=== PATIENT | female | born 1980 | race American Indian/Alaskan Native ===

== ENCOUNTER 2020-01-20 16:49 | Emergency (ER) | payer SELFPAY | END 2020-01-20 17:42 | disposition left against medical advice (07) | LOC: ED 16:49 | DX: M54.9 Dorsalgia, unspecified (principal); Z53.21 Procedure and treatment not carried out due to patient leaving prior to being seen by health care provider ==

== ENCOUNTER 2020-02-02 20:48 | Emergency (ER) | payer SELFPAY ==
[2020-02-02 21:39] LABS: Hematocrit 39.3 % (30.3-42.9); Hemoglobin 13.1 gm/dl (10.1-14.3); Mean Corpuscular HGB Conc 33 % (30-34); Mean Corpuscular Volume 91 fl (79-97); Platelet Count 333 K/mm3 (140-440); Red Blood Count 4.32 M/mm3 (3.65-5.03); Red Cell Distribution Width 12.9 % (13.2-15.2)
[2020-02-02] MEDS ORDERED: methylPREDNISolone Sod Succinate 125 MG/2 ML INJ IV ONE (21:46)
[2020-02-02] MEDS ORDERED: SODIUM CHLORIDE 0.9% 1000 ML 1,000 ML IV ONE (21:46)
--- NOTE | 2020-02-02 21:47 | Emergency Department Report ---
ED ENT HPI - General Chief complaint: Sore Throat Stated complaint: CAN'T SWALLOW FEVER Time Seen by Provider: 02/02/20 21:40 Source: patient Mode of arrival: Wheelchair Limitations: No Limitations - History of Present Illness Initial comments: Patient is a 39-year-old female that presents emergency room with complaints of throat pain and difficulty swallowing. Patient states that the symptoms started this morning. Patient states his symptoms are worsening. Patient states that she has had a sore throat, difficulty swallowing, body aches, fever and weakness. Patient states she is unable to swallow her spit. Patient states is unable to eat. Patient denies cough. Patient denies chest pain. Patient denies shortness of breath. Patient denies recent travel. Patient denies recent international travel. Patient denies exposure to the novel coronavirus. Patient denies sick contacts. Patient denies loss of smell.. Patient denies cough. Patient denies diarrhea. Patient denies coming in contact with anybody with symptoms of the novel c oronavirus. MD complaint: tooth pain, difficulty swallowing -: Sudden Location: throat Severity: severe Severity scale (0 -10): 10 Quality: stabbing Consistency: constant Improves with: rest Worsens with: swallowing, movement Associated Symptoms: fever, pain with swallowing, sore throat. denies: cough, gum swelling, toothache, tinnitus, hearing loss, discharge from ear, rhinorrhea - Related Data Home Medications Medication Instructions Recorded Confirmed Last Taken Omeprazole [Prilosec] 20 mg PO DAILY 02/08/13 02/08/13 02/13/13 raNITIdine HCL [Ranitidine HCl] 150 mg PO Q12HR PRN 02/15/13 02/15/13 02/14/13 Previous Rx's Medication Instructions Recorded Last Taken Type HYDROcodone/APAP 10-325 [Omro 1 each PO Q6HR PRN #16 tablet 07/24/13 Unknown Rx 10-325 mg TAB] Jt/Polymyx B/Dexameth Opth(Nf 2 drops OP QID #5 ml 07/24/13 Unknown Rx [Maxitrol] Sulfamethoxazole/Trimethoprim 1 each PO Q12H #14 tablet 07/24/13 Unknown Rx [Bactrim Ds] Diclofenac Dr [Voltaremo Dr] 75 mg PO Q12H #30 tablet 01/24/14 Unknown Rx Amoxicillin/K Clav Tab [Augmentin 1 tab PO Q12HR 10 Days #20 tab 02/03/20 Unknown Rx 875 mg] methylPREDNISolone [Medrol 4MG 4 mg PO DAILY 6 Days #1 tab.ds.pk 02/03/20 Unknown Rx DOSEPAK (21 tabs)] traMADoL [Ultram 50 MG tab] 50 mg PO Q6HR PRN #15 tablet 02/03/20 Unknown Rx Allergies Allergy/AdvReac Type Severity Reaction Status Date / Time No Known Allergies Allergy Unverified 02/08/13 10:39 ED Dental HPI - General Chief complaint: Sore Throat Stated complaint: CAN'T SWALLOW FEVER Time Seen by Provider: 02/02/20 21:40 Source: patient Mode of arrival: Wheelchair Limitations: No Limitations - Related Data Home Medications Medication Instructions Recorded Confirmed Last Taken Omeprazole [Prilosec] 20 mg PO DAILY 02/08/13 02/08/13 02/13/13 raNITIdine HCL [Ranitidine HCl] 150 mg PO Q12HR PRN 02/15/13 02/15/13 02/14/13 Previous Rx's Medication Instructions Recorded Last Taken Type HYDROcodone/APAP 10-325 [Omro 1 each PO Q6HR PRN #16 tablet 07/24/13 Unknown Rx 10-325 mg TAB] Jt/Polymyx B/Dexameth Opth(Nf 2 drops OP QID #5 ml 07/24/13 Unknown Rx [Maxitrol] Sulfamethoxazole/Trimethoprim 1 each PO Q12H #14 tablet 07/24/13 Unknown Rx [Bactrim Ds] Diclofenac Dr [Voltaren Dr] 75 mg PO Q12H #30 tablet 01/24/14 Unknown Rx Amoxicillin/K Clav Tab [Augmentin 1 tab PO Q12HR 10 Days #20 tab 02/03/20 Unknown Rx 875 mg] methylPREDNISolone [Medrol 4MG 4 mg PO DAILY 6 Days #1 tab.ds.pk 02/03/20 Unknown Rx DOSEPAK (21 tabs)] traMADoL [Ultram 50 MG tab] 50 mg PO Q6HR PRN #15 tablet 02/03/20 Unknown Rx Allergies Allergy/AdvReac Type Severity Reaction Status Date / Time No Known Allergies Allergy Unverified 02/08/13 10:39 ED Review of Systems ROS: Stated complaint: CAN'T SWALLOW FEVER Other details as noted in HPI Constitutional: see HPI, chills, fever, weakness Eyes: denies: eye pain, eye discharge, vision change ENT: as per HPI, throat pain. denies: ear pain Respiratory: see HPI. denies: cough, shortness of breath, wheezing Cardiovascular: denies: chest pain, palpitations Endocrine: no symptoms reported Gastrointestinal: denies: abdominal pain, nausea, diarrhea Genitourinary: denies: urgency, dysuria, discharge Musculoskeletal: denies: back pain, joint swelling, arthralgia Skin: denies: rash, lesions Neurological: denies: headache, paresthesias Psychiatric: denies: anxiety, depression Hematological/Lymphatic: denies: easy bleeding, easy bruising ED Past Medical Hx - Past Medical History Previous Medical History?: Yes Hx Hypertension: No Hx GERD: Yes Hx Seizures: No - Surgical History Past Surgical History?: Yes Additional Surgical History: 2013 BREAST - Family History Family history: no significant - Social History Smoking Status: Never Smoker Substance Use Type: None - Medications Home Medications: Home Medications Medication Instructions Recorded Confirmed Last Taken Type Omeprazole [Prilosec] 20 mg PO DAILY 02/08/13 02/08/13 02/13/13 History raNITIdine HCL [Ranitidine HCl] 150 mg PO Q12HR PRN 02/15/13 02/15/13 02/14/13 History HYDROcodone/APAP 10-325 [Omro 1 each PO Q6HR PRN #16 tablet 07/24/13 Unknown Rx 10-325 mg TAB] Jt/Polymyx B/Dexameth Opth(Nf 2 drops OP QID #5 ml 07/24/13 Unknown Rx [Maxitrol] Sulfamethoxazole/Trimethoprim 1 each PO Q12H #14 tablet 07/24/13 Unknown Rx [Bactrim Ds] Diclofenac Dr [Voltaren Dr] 75 mg PO Q12H #30 tablet 01/24/14 Unknown Rx Amoxicillin/K Clav Tab [Augmentin 1 tab PO Q12HR 10 Days #20 tab 02/03/20 Unknown Rx 875 mg] methylPREDNISolone [Medrol 4MG 4 mg PO DAILY 6 Days #1 tab.ds.pk 02/03/20 Unknown Rx DOSEPAK (21 tabs)] traMADoL [Ultram 50 MG tab] 50 mg PO Q6HR PRN #15 tablet 02/03/20 Unknown Rx ED Physical Exam - General Limitations: No Limitations General appearance: alert, in no apparent distress - Head Head exam: Present: atraumatic, normocephalic - Eye Eye exam: Present: normal appearance - ENT ENT exam: Present: mucous membranes moist, other (Right oropharynx noted.) - Neck Neck exam: Present: normal inspection - Respiratory Respiratory exam: Present: normal lung sounds bilaterally. Absent: respiratory distress - Cardiovascular Cardiovascular Exam: Present: regular rate, normal rhythm. Absent: systolic murmur, diastolic murmur, rubs, gallop - GI/Abdominal GI/Abdominal exam: Present: soft, normal bowel sounds - Extremities Exam Extremities exam: Present: normal inspection - Back Exam Back exam: Present: normal inspection - Neurological Exam Neurological exam: Present: alert, oriented X3 - Psychiatric Psychiatric exam: Present: normal affect, normal mood - Skin Skin exam: Present: warm, dry, intact, normal color. Absent: rash ED Course Vital Signs 02/02/20 02/02/20 02/02/20 21:15 21:18 21:49 Temperature 99.7 F H 99.4 F 99.9 F H Pulse Rate 97 H 86 Respiratory 16 16 Rate Blood Pressure 124/79 Blood Pressure 138/80 [Right] O2 Sat by Pulse 100 99 Oximetry - Reevaluation(s) Reevaluation #1: Patient states her pain is better. 02/02/20 23:20 Reevaluation #2: Patient states he is feeling much better. Patient states she is able to swallow but it still hurts. Patient states overall her pain is much better. Patient will be given Rocephin prior to discharge. I discussed all results and clinical findings with patient. I discussed plan of care with patient. Patient agrees with plan of care. Patient is stable for discharge. Patient will be discharged home. Patient given discharge instructions. Patient voiced understanding of discharge instructions. 02/03/20 03:20 Reevaluation #3: Patient states she is feeling much better. 02/03/20 03:55 ED Medical Decision Making - Lab Data Result diagrams: 02/02/20 21:25 02/02/20 21:25 - Radiology Data Radiology results: report reviewed CHEST 1 VIEW INDICATION: fever. COMPARISON: None FINDINGS: SUPPORT DEVICES: None. HEART: Within normal limits. LUNGS/PLEURA: No acute air space or interstitial disease. ADDITIONAL FINDINGS: None. IMPRESSION: 1. No acute findings. CT neck w con INDICATION / CLINICAL INFORMATION: 39 years Female; DIFFICULTY SWALLOWING WITH MUFFERING OF VOICE. TECHNIQUE: Contiguous thin cut axial images obtained through the neck following IV contras t. Sagittal and coronal reconstructions performed by the technologist. All CT scans at this location are performed using CT dose reduction for ALARA by means of automated exposure control. COMPARISON: None available. FINDINGS: MUCOSAL SPACE: There is heterogeneous prominence of the palatine soft tissues bilaterally with striated enhancement which may be seen with tonsillitis. There are a few scattered small areas of relatively decreased attenuation though there is no clear evidence of well- defined abscess on the current exam. There is mild narrowing of the transverse airway at this level. The epiglottis is appropriate in size. LYMPH NODES: There is associated reactive lymphadenopathy, most notably within the left jugulodigastric region with a node measuring 1.4 cm in short axis diameter. There are mild adjacent inflammatory changes within the jugulodigastric regions. SALIVARY GLANDS: The visualized parotid glands demonstrate symmetric attenuation without calcification. There is absence of the submandibular glands and correlation would be needed regarding any previous surgery at. THYROID GLAND: The thyroid gland demonstrate appropriate size and contour. PARANASAL SINUSES: Visualized paranasal sinuses and mastoid air cells are essentially clear. SPINE: There is mild reversal of the cervical lordosis with mild degenerative disc changes. VASCULAR STRUCTURES: Vascular structures are grossly normal in appearance. Surrounding soft tissues are otherwise grossly normal. IMPRESSION: 1. There is heterogeneous prominence of the palatine soft tissues with striated enhancement in a pattern which may be seen with tonsillitis as detailed above at. There is associated reactive cervical lymphadenopathy. - Medical Decision Making Patient is a 39-year-old female that presents emergency room with complaints of difficulty swallowing, severe throat pain, fever. Patient found to have enlarged tonsils on exam. Patient also found to be febrile and having difficulty swallowing. Patient was given Solu-Medrol and viscous lidocaine. Patient symptoms improved. Patient's pain improved. Patient states she is feeling better prior to discharge. Patient had labs done which were essentially unremarkable except for elevated WBC. Patient had a chest x-ray for the fever and it was negative for acute findings. Patient had a CT scan of the soft tissue of the neck due to the severity of her symptoms and her inability to swallow. Patient had a CT also to rule out a peritonsillar abscess. Patient's CT scan was positive for tonsillitis. Patient given antibiotics and steroids as a prescription. Patient given discharge directions. Patient stable for discharge. - Differential Diagnosis Fever, tonsillitis, peritonsillar abscess, throat pain Critical care attestation.: If time is entered above; I have spent that time in minutes in the direct care of this critically ill patient, excluding procedure time. ED Disposition Clinical Impression: Throat pain in adult, Sore throat, Acute bacterial tonsillitis Difficulty swallowing Qualifiers: Dysphagia type: unspecified Qualified Code(s): R13.10 - Dysphagia, unspecified Fever Qualifiers: Fever type: unspecified Qualified Code(s): R50.9 - Fever, unspecified Disposition: DC-01 TO HOME OR SELFCARE Is pt being admited?: No Does the pt Need Aspirin: No Condition: Stable Instructions: Tonsillitis, [id number], Pharyngitis, [id number], Sore Throat, [id number] Additional Instructions: Patient to follow-up with primary care in 2 to 3 days. Patient to follow-up with ENT in 2 to 3 days. Patient to rest. Patient to increase water. Patient to avoid strenuous exercise or heavy lifting until cleared by ENT and primary care. Patient to take Tylenol or ibuprofen as needed for pain. Patient to take meds as directed. Patient to return to the ER if condition worsens, changes or new symptoms arise. Prescriptions: Amoxicillin/K Clav Tab [Augmentin 875 mg] 1 tab PO Q12HR 10 Days #20 tab methylPREDNISolone [Medrol 4MG DOSEPAK (21 tabs)] 4 mg PO DAILY 6 Days #1 tab.ds.pk traMADoL [Ultram 50 MG tab] 50 mg PO Q6HR PRN #15 tablet PRN Reason: Pain Referrals: PRIMARY CARE, [Primary Care Provider] - 2-3 Days Time of Disposition: 03:25
[2020-02-02] MEDS ORDERED: LIDOCAINE VISCOUS 2% 15 ML ORAL LIQD ONE (21:50)
[2020-02-02 21:51] VITALS: BP 138/80
[2020-02-02] MEDS ORDERED: LIDOCAINE VISCOUS 2% 15 ML ORAL LIQD PO ONE (21:53)
[2020-02-02 21:58] LABS: Alanine Aminotransferase 9 units/L (7-56); Albumin 3.7 g/dL (3.9-5); BUN/Creatinine Ratio 8; Blood Urea Nitrogen 6 mg/dL (7-17); Calcium 9.4 mg/dL (8.4-10.2); Hemolysis Index 6
--- NOTE | 2020-02-02 23:05 | XRay Report ---
CHEST 1 VIEW INDICATION: fever. COMPARISON: None FINDINGS: SUPPORT DEVICES: None. HEART: Within normal limits. LUNGS/PLEURA: No acute air space or interstitial disease. ADDITIONAL FINDINGS: None. IMPRESSION: 1. No acute findings. Signer Name: Kenji Monge MD Signed: 02/02/2020 11:00 PM Workstation Name: [id number]
--- NOTE | 2020-02-02 23:57 | Cat Scan Report ---
CT neck w con INDICATION / CLINICAL INFORMATION: 39 years Female; DIFFICULTY SWALLOWING WITH MUFFERING OF VOICE. TECHNIQUE: Contiguous thin cut axial images obtained through the neck following IV contrast. Sagittal and bernardo l reconstructions performed by the technologist. All CT scans at this location are performed using CT dose reduction for ALARA by means of automated exposure control. COMPARISON: None available. FINDINGS: MUCOSAL SPACE: There is heterogeneous prominence of the palatine soft tissues bilaterally with striat ed enhancement which may be seen with tonsillitis. There are a few scattered small areas of relativel y decreased attenuation though there is no clear evidence of well-defined abscess on the current exam . There is mild narrowing of the transverse airway at this level. The epiglottis is appropriate in si ze. LYMPH NODES: There is associated reactive lymphadenopathy, most notably within the left jugulodigastr ic region with a node measuring 1.4 cm in short axis diameter. There are mild adjacent inflammatory c hanges within the jugulodigastric regions. SALIVARY GLANDS: The visualized parotid glands demonstrate symmetric attenuation without calcificatio n. There is absence of the submandibular glands and correlation would be needed regarding any previou s surgery at. THYROID GLAND: The thyroid gland demonstrate appropriate size and contour. PARANASAL SINUSES: Visualized paranasal sinuses and mastoid air cells are essentially clear. SPINE: There is mild reversal of the cervical lordosis with mild degenerative disc changes. VASCULAR STRUCTURES: Vascular structures are grossly normal in appearance. Surrounding soft tissues are otherwise grossly normal. IMPRESSION: 1. There is heterogeneous prominence of the palatine soft tissues with striated enhancement in a yessy marily which may be seen with tonsillitis as detailed above at. There is associated reactive cervical ly mphadenopathy. Signer Name: Cain Perez MD Signed: 02/02/2020 11:53 PM Workstation Name: [id number]
[2020-02-03] MEDS ORDERED: cefTRIAXone/NS 2 GM/100 ML 2 GM/100 ML BAG IV ONE (03:19)
== END 2020-02-03 04:00 | disposition home or self-care (01) ==
LOC: ED 20:48
DX: J03.80 Acute tonsillitis due to other specified organisms (principal); B96.89 Other specified bacterial agents as the cause of diseases classified elsewhere; R13.10 Dysphagia, unspecified; R50.9 Fever, unspecified; K21.9 Gastro-esophageal reflux disease without esophagitis; Z79.899 Other long term (current) drug therapy
CPT/HCPCS: 36415; 70491; 71045; 80053; 84703; 85027; 86308; 87116; 87400; 87430; 96361; 96365; 96375; 99284; J0696; J2930; J7030; Q9967